=== PATIENT | male | born 1990 | race Hispanic/Latino ===

== ENCOUNTER 2024-04-06 14:08 | Emergency (ER) | payer SELFPAY ==
[~2024-04-06] VITALS: Ht 170.2 cm; Wt 108.9 kg
[~2024-04-06 14:08] MED LIST: AMOX1TAB16 PO
[2024-04-06] MEDS: TRIAMCINOLONE ACETONIDE 40 MG/ML 1ML VIAL IM ONE (15:44)
[2024-04-06] MEDS: ONDANSETRON 4MG INJ IVP ONE (15:44)
[2024-04-06] MEDS: ketOROlac 15MG/ML VIAL (15MG/ML) IV ONE (15:44)
[2024-04-06] MEDS: ORPHENADRINE 60MG/2ML IV ONE (15:44)
[2024-04-06] MEDS: morPHINE 2 MG SYG IVP ONE (15:45)
[2024-04-06 16:07] VITALS: BP 126/74; PULSE 74; RESP 20; TEMP 98.6; O2SAT 99
[2024-04-06] MEDS ORDERED: KETO10TA2 PO (16:34)
[2024-04-06] MEDS ORDERED: BACL10TA PO (16:34)
[2024-04-07] MEDS ORDERED: CYCL10TA16 PO (17:20)
[2024-04-07] MEDS ORDERED: IBUP-2077 PO (17:20)
[2024-04-07] MEDS ORDERED: METH4TAB3 PO (17:20)
== END 2024-04-06 16:45 | disposition home or self-care (01) ==
LOC: EDH 14:08
DX: M54.41 Lumbago with sciatica, right side (principal); Z79.899 Other long term (current) drug therapy; Z98.890 Other specified postprocedural states
CPT/HCPCS: 99284; 96374; 96375; 96372; J2270; J2405; J3301; J1885; J2360

== ENCOUNTER 2024-04-07 15:42 | Emergency (ER) | payer SELFPAY ==
[~2024-04-07] VITALS: Ht 170.2 cm; Wt 108.9 kg
[~2024-04-07 15:42] MED LIST changes: +BACL10TA PO; +KETO10TA2 PO
[2024-04-07 16:01] LABS: APPEARANCE,URINE CLEAR (CLEAR); BILIRUBIN,URINE NEGATIVE (NEGATIVE); COLOR,URINE LIGHT-YELLOW (YELLOW); GLUCOSE, URINE (UA) NEGATIVE (NEGATIVE); KETONES,URINE NEGATIVE (NEGATIVE); LEUKOCYTE ESTERASE ,URINE NEGATIVE Leu/uL (NEGATIVE); NITRATE,URINE NEGATIVE (NEGATIVE); OCCULT BLOOD,URINE NEGATIVE (NEGATIVE); PROTEIN,URINE NEGATIVE (NEGATIVE); UROBILINOGEN,URINE 0.2 mg/dL (0.2-1.0)
[2024-04-07 16:26] LABS: ADD UA MICROSCOPIC NO
[2024-04-07 16:36] LABS: BASOPHILS # (AUTO) 0.04 K/uL (0.00-0.20); BASOPHILS % (AUTO) 0.4 % (0.0-5.0); EOSINOPHILS # (AUTO) 0.11 K/uL (0.00-0.70); IMMATURE GRANULOCYTE ABSOLUTE 0.09 K/uL (0-1); LYMPHOCYTES # (AUTO) 2.1 K/uL (1.0-4.8); LYMPHOCYTES % (AUTO) 19.9 % (21.0-51.0); MEAN CORPUSCULAR HEMOGLOBIN 27.8 pg (27.0-33.0); MEAN CORPUSCULAR HGB CONC 33.8 g/dL (32.0-36.0); MEAN CORPUSCULAR VOLUME 82.4 fL (79-99); MONOCYTES # (AUTO) 0.8 K/uL (0.1-1.0); MONOCYTES % (AUTO) 7.2 % (3.0-13.0); NEUTROPHILS # (AUTO) 7.4 K/uL (1.8-7.7); NEUTROPHILS % (AUTO) 70.6 % (40.0-77.0); PLATELET COUNT (AUTO) 225 K/uL (130-400); RED BLOOD CELL COUNT(AUTO) 5.46 MIL/uL (4.50-6.20); RED CELL DISTRIBUTION WIDTH 13.1 % (11.0-15.5); WHITE BLOOD COUNT (AUTO) 10.5 K/uL (4.8-10.8)
[2024-04-07] MEDS: ONDANSETRON 4MG INJ IVP ONE (16:37)
[2024-04-07] MEDS: ketOROlac 30MG VIAL (30MG/ML) IVP ONE (16:38)
[2024-04-07] MEDS: morPHINE 2 MG SYG IVP ONE (16:38)
[2024-04-07] MEDS: 0.9%NACL 1000ML 1,000 ML IV ONE (16:38)
[2024-04-07 16:49] LABS: POTASSIUM 4.1 mmol/L (3.5-5.1)
[2024-04-07 17:19] VITALS: BP 136/74; PULSE 72; RESP 18; TEMP 98.2; O2SAT 98
[2024-04-07] MEDS ORDERED: IBUP-2077 PO (17:20)
[2024-04-07] MEDS ORDERED: CYCL10TA16 PO (17:20)
[2024-04-07] MEDS ORDERED: METH4TAB3 PO (17:20)
[2024-04-07] MEDS: ketOROlac 60 MG VIAL (30MG/ML) IM ONE (18:31)
[2024-04-07] MEDS: CYCLOBENZAPRINE HCL 10 MG TABLET PO ONE (18:31)
[2024-04-07] MEDS: HYDROcodone/APAP 5/325 1 TAB TABLET PO ONE (18:31)
== END 2024-04-07 18:42 | disposition home or self-care (01) ==
LOC: EDH 15:42
DX: N43.3 Hydrocele, unspecified (principal); N44.2 Benign cyst of testis; M54.31 Sciatica, right side; Z79.899 Other long term (current) drug therapy; Z98.890 Other specified postprocedural states
CPT/HCPCS: 99285; 74176; 96374; 96375; 96361; 80048; 83690; 85025; 81003; 36415; 76870; 96372; J2270; J2405; J1885 ×2